=== PATIENT | female | born 1990 | race Caucasian/White ===

== ENCOUNTER 2021-08-11 23:45 | Emergency (ER) | payer BC, OTHER ==
[~2021-08-11] VITALS: Ht 170.2 cm; Wt 112.6 kg
[2021-08-12 05:54] VITALS: BP 109/76
== END 2021-08-12 06:00 | disposition home or self-care (01) ==
LOC: ER 23:45
DX: O20.0 Threatened abortion (principal); Z3A.01 Less than 8 weeks gestation of pregnancy
CPT/HCPCS: 36415; 76801; 84702; 99284